=== PATIENT | female | born 1970 | race Caucasian/White ===

== ENCOUNTER 2017-12-31 09:28 | Emergency (ER) | payer BC ==
[~2017-12-31] VITALS: Ht 165.1 cm; Wt 68.0 kg
[2017-12-31] MEDS ORDERED: NORCO 5-325 TA1 EACH PO (09:51)
[2017-12-31] MEDS ORDERED: DULOXETINE HCL60 MG PO (09:51)
[2017-12-31] MEDS ORDERED: LYRICA100 MG PO (09:51)
[2017-12-31] MEDS ORDERED: PREDNISONE20 MG PO (10:59)
[2017-12-31] MEDS ORDERED: ROBAXIN-750750 MG PO (10:59)
== END 2017-12-31 11:21 | disposition home or self-care (01) ==
LOC: ED 09:28
DX: M54.41 Lumbago with sciatica, right side (principal); G89.29 Other chronic pain; F17.200 Nicotine dependence, unspecified, uncomplicated; Z79.899 Other long term (current) drug therapy
CPT/HCPCS: 96372; 99283; J1885; J7512

== ENCOUNTER 2020-10-02 14:50 | Emergency (ER) | payer BC ==
[~2020-10-02] VITALS: Ht 165.1 cm; Wt 79.8 kg
[~2020-10-02 14:50] MED LIST: DULOXETINE HCL60 MG PO; LYRICA100 MG PO; NORCO 5-325 TA1 EACH PO; PREDNISONE20 MG PO; ROBAXIN-750750 MG PO
--- OUTSIDE RECORDS SUMMARY | 2020-10-02 14:52 | XMS ---
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 Cipriano has no Care Guidelines for this patient. Myra VISIT COUNT (12 MO.) 1 [facility] 1 [facility] 1 [facility] TOTAL 3 NOTE: Visits indicate total known visits. ED/C VISIT TRACKING (12 MO.) 10/02/2020 14:50 [facility] [place] TYPE: Emergency COMPLAINT: - LUNG PAIN [facility] DIAGNOSES: - Shoulder Pain - Left arm pain - Calcific tendinitis of left shoulder [facility] DIAGNOSES: - Pyothorax without fistula - Post-op Problem - Other nonspecific abnormal finding of lung field INPATIENT VISIT TRACKING (12 MO.) No inpatient visits to display in this time frame [email or web address]
[2020-10-02] MEDS ORDERED: TRAMADOL HCL50 MG PO (15:14)
[2020-10-02] MEDS ORDERED: LATUDA80 MG PO (15:14)
[2020-10-02] MEDS ORDERED: PREDNISONE20 MG PO (17:13)
[2020-10-02] MEDS ORDERED: NICODERM CQ1 EAC1 TD (17:13)
[2020-10-02] MEDS ORDERED: VENTOLIN HFA18 GM INH (17:13)
[2020-10-02] MEDS ORDERED: DOXYCYCLINE HY100 MG PO (17:13)
== END 2020-10-02 17:33 | disposition home or self-care (01) ==
LOC: ED 14:50
DX: J40 Bronchitis, not specified as acute or chronic (principal); F17.200 Nicotine dependence, unspecified, uncomplicated; Z79.899 Other long term (current) drug therapy
CPT/HCPCS: 71046; 80053; 85025; 94640; 99283-25; 99406

== ENCOUNTER 2021-12-15 16:56 | Emergency (ER) | payer BC ==
[~2021-12-15] VITALS: Ht 165.1 cm; Wt 78.0 kg
[~2021-12-15 16:56] MED LIST changes: +DOXYCYCLINE HY100 MG PO; +LATUDA80 MG PO; +NICODERM CQ1 EAC1 TD; +TRAMADOL HCL50 MG PO; +VENTOLIN HFA18 GM INH
--- OUTSIDE RECORDS SUMMARY | 2021-12-15 16:58 | XMS ---
PreManage Notification: SERAFIN LEPE Security Scrap Charger Events No recent Security Events currently on file CRITERIA MET - PDMP CARE PROVIDERS CLAUDE LOPEZ Physician Continuity Reader 10/03/2020-Current PHONE: [phone] Cipriano has no Care Guidelines for this patient. EJose Carlos VISIT COUNT (12 MO.) 1 [facility]LINE [facility] TOTAL 1 NOTE: Visits indicate total known visits. ED/UCC VISIT TRACKING (12 MO.) 12/15/2021 16:56 [facility] [place] TYPE: Emergency COMPLAINT: - NAUSEA INPATIENT VISIT TRACKING (12 MO.) No inpatient visits to display in this time frame [email or web address]
[2021-12-15] MEDS ORDERED: GOLYTELY SOLU4000 ML PO (22:34)
[2021-12-15] MEDS ORDERED: PROMETHAZINE HC25 M1 PO (22:34)
== END 2021-12-15 22:47 | disposition home or self-care (01) ==
LOC: ED 16:56
DX: R51.9 Headache, unspecified (principal); K59.00 Constipation, unspecified; R10.9 Unspecified abdominal pain; R11.0 Nausea; F17.200 Nicotine dependence, unspecified, uncomplicated; Z79.899 Other long term (current) drug therapy; Z79.52 Long term (current) use of systemic steroids
CPT/HCPCS: 36415; 70450; 74177; 80053; 81001; 83690; 85025; J1170; J2405; Q9967

== ENCOUNTER 2021-12-16 15:45 | Emergency (ER) | payer BC ==
[~2021-12-16] VITALS: Ht 165.1 cm; Wt 78.0 kg
[~2021-12-16 15:45] MED LIST changes: +GOLYTELY SOLU4000 ML PO; +PROMETHAZINE HC25 M1 PO
--- OUTSIDE RECORDS SUMMARY | 2021-12-16 15:46 | XMS ---
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 Myra VISIT COUNT (12 MO.) 2 [facility] TOTAL 2 NOTE: Visits indicate total known visits. ED/UCC VISIT TRACKING (12 MO.) 12/16/2021 15:45 [facility] [place] TYPE: Emergency COMPLAINT: - ABDOMINAL PAIN 12/15/2021 16:56 [facility] [place] TYPE: Emergency COMPLAINT: - NAUSEA INPATIENT VISIT TRACKING (12 MO.) No inpatient visits to display in this time frame [email or web address]
== END 2021-12-16 18:32 | disposition left against medical advice (07) ==
LOC: ED 15:45
DX: R10.9 Unspecified abdominal pain (principal); F17.200 Nicotine dependence, unspecified, uncomplicated; Z79.52 Long term (current) use of systemic steroids; Z53.21 Procedure and treatment not carried out due to patient leaving prior to being seen by health care provider
CPT/HCPCS: J2212

== ENCOUNTER 2022-06-05 08:16 | Emergency (ER) | payer BC ==
[~2022-06-05] VITALS: Ht 165.1 cm; Wt 68.5 kg
[~2022-06-05 08:16] MED LIST changes: +BUPRENORPHINE HC8 MG SL; +ESTRACE0.5 MG PO; +METHOCARBAMOL750 MG NG; +TRAZODONE HCL100 MG PO
--- OUTSIDE RECORDS SUMMARY | 2022-06-05 08:18 | XMS ---
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 - Patient with suicidal and/or homicidal ideations eloped. - Patient eloped with IV in place. Details: PATIENT LEFT AMA CRITERIA MET - [facility] CARE PROVIDERS CLAUDE LOPEZ Physician Lumber Salvager 10/03/2020-Current PHONE: Unknown Cipriano has no Care Guidelines for this patient. Myra VISIT COUNT (12 MO.) 3 [facility] TOTAL 3 NOTE: Visits indicate total known visits. ED/UCC VISIT TRACKING (12 MO.) 06/05/2022 08:17 [facility] [place] TYPE: Emergency COMPLAINT: - CHEST PAIN, LIGHT HEADED 12/16/2021 15:45 [facility] [place] TYPE: Emergency COMPLAINT: - ABDOMINAL PAIN DIAGNOSES: - Unspecified abdominal pain - Nicotine dependence, unspecified, uncomplicated - Procedure and treatment not carried out due to patient leaving prior to being seen by health care provider - long term acute care registered nurse (current) use of systemic steroids 12/15/2021 16:56 [facility] [place] TYPE: Emergency COMPLAINT: - NAUSEA DIAGNOSES: - long term acute care registered nurse (current) use of systemic steroids - Nicotine dependence, unspecified, uncomplicated - Nausea - 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
[2022-06-05] MEDS ORDERED: MEDROXYPROGEST2.5 MG PO (08:44)
[2022-06-05] MEDS ORDERED: TOLTERODINE TART4 MG PO (08:45)
[2022-06-05] MEDS ORDERED: LIDODERM1 EACH TD (10:58)
[2022-06-05] MEDS ORDERED: NAPROSYN500 MG PO (10:58)
--- NOTE | 2022-06-07 06:50 | EKG ---
[facility] [address] [facility] [place], [place] [address] Signed Normal sinus rhythm Normal ECG No previous ECGs available Confirmed by MANAS PASTRANA MD ([id number]) on 06/07/2022 6:49:49 AM Electronically Signed By: MANAS PASTRANA MD 06/07/22 0650 PATIENT NAME: SERAFIN LEPE Electrocardiogram DATE OF : 68 PHYSICIAN: MANAS PASTRANA MD REPORT #: [id number] REPORT IS CONFIDENTIAL AND NOT TO BE RELEASED WITHOUT AUTHORIZATION
== END 2022-06-05 11:31 | disposition home or self-care (01) ==
LOC: ED 08:16
DX: R09.1 Pleurisy (principal); F17.200 Nicotine dependence, unspecified, uncomplicated; Z88.1 Allergy status to other antibiotic agents; Z79.899 Other long term (current) drug therapy
CPT/HCPCS: 36415; 71045; 80053; 83735; 84484; 85025; 85379; 93005; 93010; 96374; 96375; 99285-25; A9270; J1170; J1885

== ENCOUNTER 2023-02-27 18:18 | Emergency (ER) | payer BC ==
[~2023-02-27] VITALS: Ht 165.1 cm; Wt 63.5 kg
--- OUTSIDE RECORDS SUMMARY | ~2023-02-27 | XMS | Continuity of Care Document ---
Demographics + + + | Address | [address] | | | [place] [address] | + + + | Preferred Language | Unknown | + + + | Marital Status | Never | + + + | Orthodox Affiliation | Unknown | + + + | Race | White | + + + | Ethnic Group | Not or | + + + Author + + + | Author | [facility] | + + + | Organization | [facility] | + + + | Address | [address] | | | [place] [address] | + + + | Phone | | + + + Care Team Providers + + + + | Care Car Park Attendant Name | Role | Phone | + + + + Unavailable | Unavailable | + + + + Unavailable | Unavailable | + + + + Unavailable | Unavailable | + + + + Unavailable | Unavailable | + + + + Allergies and Intolerances + + + + + + | date | description | facility | reaction | severity | + + + + + + | (no date) | Doxycycline | [facility] | (no reaction) | (no severity) | | | | [facility] | | | + + + + + + | (no date) | Urticaria | [facility] | (no reaction) | (no severity) | | | | [facility] | | | + + + + + + | (no date) | Doxycycline | [facility] | (no reaction) | (no severity) | | | | [facility] | | | + + + + + + | (no date) | Doxycycline | [facility] | (no reaction) | (no severity) | | | | [place] | | | | [facility] | | | + + + + + + Encounters No information. Functional Status No information. Immunizations No information. Medications + + + + | date | description | facility | + + + + | 2022-06-06 00:00 | [facility] | [facility] | | | ACETATE | | + + + + | 2022-06-27 00:00 | MEDROXYPROGESTERONE | [facility] | | | ACETATE | | + + + + | 2022-08-26 00:00 | medroxyprogesterone | [facility] | | | acetate 2.5 MG Oral Tablet | | + + + + | 2022-06-27 00:00 | Buprenorphine HCl/Naloxone | [facility] | | | HCl | | + + + + | 2017-12-31 00:00 | METHOCARBAMOL | [facility] | + + + + | 2022-06-05 00:00 | Lidocaine | [facility] | + + + + | 2022-01-04 00:00 | LURASIDONE HCL | [facility] | + + + + | 2022-09-02 00:00 | ondansetron 4 MG | [facility] | | | Disintegrating Oral Tablet | | + + + + | 2022-09-12 00:00 | ondansetron 4 MG | [facility] | | | Disintegrating Oral Tablet | | + + + + | 2022-09-24 00:00 | ondansetron 4 MG | [facility] | | | Disintegrating Oral Tablet | | + + + + | 2022-09-24 00:00 | Ibuprofen 800 MG Oral | [facility] | | | Tablet | | + + + + | 2022-11-02 00:00 | Ibuprofen 800 MG Oral | [facility] | | | Tablet | | + + + + | 2022-12-30 00:00 | Ibuprofen 800 MG Oral | [facility] | | | Tablet | | + + + + | 2022-06-05 00:00 | NAPROXEN | [facility] | + + + + | 2022-08-26 00:00 | medroxyPROGESTERone | [facility] | | | Acetate 2.5 MG Oral Tablet | | + + + + | 2020-10-02 00:00 | DOXYCYCLINE HYCLATE | [facility] | + + + + | 2023-02-16 00:00 | GNP Pseudoephedrine HCl 12 | [facility] | | | Hr 120 MG Oral Tablet | | | | Extended Release 12 Hour | | + + + + | 2022-09-01 00:00 | estradiol 2 MG Oral Tablet | [facility] | | | | | + + + + | 2022-09-24 00:00 | ibuprofen 800 MG Oral | [facility] | | | Tablet | | + + + + | 2022-11-02 00:00 | ibuprofen 800 MG Oral | [facility] | | | Tablet | | + + + + | 2022-12-30 00:00 | ibuprofen 800 MG Oral | [facility] | | | Tablet | | + + + + | 2022-06-20 00:00 | NICOTINE | [facility] | + + + + | 2022-06-02 00:00 | ESTRADIOL | [facility] | + + + + | 2022-06-06 00:00 | ESTRADIOL | [facility] | + + + + | 2022-06-27 00:00 | ESTRADIOL | [facility] | + + + + | 2022-09-01 00:00 | Estradiol 2 MG Oral Tablet | [facility] | | | | | + + + + | 2017-12-31 00:00 | predniSONE | [facility] | + + + + | 2020-10-02 00:00 | predniSONE | [facility] | + + + + | 2022-06-02 00:00 | BUPRENORPHINE HCL | [facility] | + + + + | 2022-06-06 00:00 | BUPRENORPHINE HCL | [facility] | + + + + | 2020-10-02 00:00 | NICOTINE | [facility] | + + + + | 2022-09-24 00:00 | Verapamil HCl ER 120 MG | [facility] | | | Oral Tablet Extended | | | | Release | | + + + + | 2022-09-02 00:00 | Cyclobenzaprine HCl 10 MG | [facility] | | | Oral Tablet | | + + + + | 2023-02-16 00:00 | amoxicillin 875 MG / | [facility] | | | clavulanate 125 MG Oral | | | | Tablet | | + + + + | 2022-01-04 00:00 | DULOXETINE HCL | [facility] | + + + + | 2022-06-02 00:00 | DULOXETINE HCL | [facility] | + + + + | 2022-06-06 00:00 | DULOXETINE HCL | [facility] | + + + + | 2022-06-27 00:00 | DULOXETINE HCL | [facility] | + + + + | 2022-09-01 00:00 | duloxetine 60 MG Delayed | [facility] | | | Release Oral Capsule | | + + + + | 2022-01-04 00:00 | PREGABALIN | [facility] | + + + + | 2022-09-02 00:00 | Ondansetron 4 MG Oral | [facility] | | | Tablet Disintegrating | | + + + + | 2022-09-12 00:00 | Ondansetron 4 MG Oral | [facility] | | | Tablet Disintegrating | | + + + + | 2022-09-24 00:00 | Ondansetron 4 MG Oral | [facility] | | | Tablet Disintegrating | | + + + + | 2023-02-16 00:00 | Amoxicillin-Pot | [facility] | | | Clavulanate 875-125 MG Oral | | | | Tablet | | + + + + | 2022-09-02 00:00 | cyclobenzaprine | [facility] | | | hydrochloride 10 MG Oral | | | | Tablet | | + + + + | 2022-01-04 00:00 | TRAMADOL HCL | [facility] | + + + + | 2022-06-06 00:00 | TOLTERODINE TARTRATE | [facility] | + + + + | 2022-06-27 00:00 | TOLTERODINE TARTRATE | [facility] | + + + + | 2022-06-02 00:00 | TRAZODONE HCL | [facility] | + + + + | 2022-06-06 00:00 | TRAZODONE HCL | [facility] | + + + + | 2022-06-27 00:00 | TRAZODONE HCL | [facility] | + + + + | 2022-01-04 00:00 | HYDROCODONE | [facility] | | | BIT/ACETAMINOPHEN | | + + + + | 2020-10-02 00:00 | ALBUTEROL SULFATE | [facility] | + + + + | 2022-09-01 00:00 | DULoxetine HCl 60 MG Oral | [facility] | | | Capsule Delayed Release | | | | Particles | | + + + + | 2022-09-24 00:00 | verapamil hydrochloride | [facility] | | | 120 MG Extended Release | | | | Oral Tablet | | + + + + | 2021-12-15 00:00 | PEG 3350/NA | [facility] | | | SULF,BICARB,CL/KCL | | + + + + | 2021-12-15 00:00 | PROMETHAZINE HCL | [facility] | + + + + | 2022-09-01 00:00 | Trazadone HCL 150mg | [facility] | | | Ophthalmic Tablet | | + + + + Problems + + + + | date | description | facility | + + + + | 2021-10-25 11:00 | CERVICALGIA | [facility] | + + + + | 2021-10-25 11:00 | STRAIN OF MUSCLE, FASCIA | [facility] | | | AND TENDON AT NECK LEVEL, | | | | SUBS | | + + + + | 2021-10-25 11:00 | ARTHRODESIS STATUS | [facility] | + + + + | 2021-12-15 00:00 | Constipation | [facility] | + + + + | 2021-12-15 00:00 | Abdominal pain | [facility] | + + + + | 2021-12-15 00:00 | Headache | [facility] | + + + + | 2021-12-15 16:56 | Nicotine dependence, | [facility] | | | unspecified, uncomplicated | [facility] | + + + + | 2021-12-15 16:56 | Constipation, unspecified | [facility] | | | | [facility] | + + + + | 2021-12-15 16:56 | Unspecified abdominal pain | [facility] | | | | [facility] | + + + + | 2021-12-15 16:56 | Nausea | [facility] | | | | [facility] | + + + + | 2021-12-15 16:56 | Headache, unspecified | [facility] | | | [facility] | + + + + | 2021-12-15 16:56 | [facility] (current) use of | [facility] | | | systemic steroids | [facility] | + + + + | 2021-12-15 16:56 | Other senior living (current) | [facility] | | | drug therapy | [facility] | + + + + | 2022-06-05 00:00 | Pleurisy | [facility] | + + + + | 2022-06-20 00:00 | Influenza due to influenza | [facility] | | | virus, type A, human | | + + + + | 2022-06-20 00:00 | Acute viral bronchitis | [facility] | + + + + | 2022-11-06 11:48 | CERVICALGIA | [facility] | + + + + Procedures + + + + | date | description | facility | + + + + | 2022-06-02 00:00 | EXCISION OF CECUM, ENDO, | [facility] | | | DIAGN | | + + + + | 2022-06-02 00:00 | EXCISION OF RECTUM, ENDO, | [facility] | | | DIAGN | | + + + + | 2022-06-02 00:00 | Colonoscopy with biopsy of [facility] | | | colon | | + + + + | 2022-06-02 00:00 | Colonoscopy with biopsy of [facility] | | | colon | | + + + + | 2022-06-02 00:00 | COLONOSCOPY AND BIOPSY | [facility] | + + + + Results/Labs +--------+--------+ +---------+--------+---------+ | test | date | facility | value | unit | notes | +--------+--------+ +---------+--------+---------+ + + | Result panel 1 | + + + + + + + + + | No Results | (no date) | [facility] | No Results | (missing) | (missing) | | [facility] | | [facility] | | | | + + + + + + + + + | Result panel 2 | + + + + + + + + + | No Results | (no date) | [facility] | No Results | (missing) | (missing) | | | | [facility] | | | | | | [facility] | | | | + + + + + + + + + | Result panel 3 | + + + + + + + + + | No Results | (no date) | [facility] | No Results | (missing) | (missing) | | | | [facility] | | | | | | [facility] | | | | + + + + + + + + + | Result panel 4 | + + + + + + + + + | No Results | (no date) | [facility] | No Results | (missing) | (missing) | | | | [facility] | | | | | | | [facility] | | | | + + + + + + + + + | Result panel 5 | + + + + + + + + + | No Results | (no date) | [facility] | No Results | (missing) | (missing) | | | | [facility] | | | | | | | [facility] | | | | + + + + + + + + + | Result panel 6 | + + + + + + + + + | No Results | (no date) | [facility] | No Results | (missing) | (missing) | | | | [facility] | | | | | | | [facility] | | | | + + + + + + + + + | Result panel 7 | + + + + + +--------+ + + | | 2021-12-15 | [facility] | 47.3 | (missing) | (missing) | | (unavailable | 19:43 | [facility] | | | | + + + +--------+ + + + + | Result panel 8 | + + + + + +--------+ + + | | 2021-12-15 | [facility] | 91.9 | (missing) | (missing) | | (unavailable | 19:43 | [facility] | | | | + + + +--------+ + + + + | Result panel 9 | + + + + + +--------+ + + | | 2021-12-15 | [facility] | 31.3 | (missing) | (missing) | | (unavailable | 19:43 | [facility] | | | | + + + +--------+ + + + + | Result panel 10 | + + + + + +--------+ + + | | 2021-12-15 | [facility] | 34.0 | (missing) | (missing) | | (unavailable | 19:43 | [facility] | | | | + + + +--------+ + + + + | Result panel 11 | + + + + + +--------+ + + | | 2021-12-15 | [facility] | 13.6 | (missing) | (missing) | | (unavailable | 19:43 | [facility] | | | | + + + +--------+ + + + + | Result panel 12 | + + + + + +-------+ + + | | 2021-12-15 | [facility] | 314 | (missing) | (missing) | | (unavailable | 19:43 | [facility] | | | | + + + +-------+ + + + + | Result panel 13 | + + + + + +--------+ + + | | 2021-12-15 | [facility] | 47.5 | (missing) | (missing) | | (unavailable | 19:43 | [facility] | | | | + + + +--------+ + + + + | Result panel 14 | + + + + + +--------+ + + | | 2021-12-15 | [facility] | 41.0 | (missing) | (missing) | | (unavailable | 19:43 | [facility] | | | | + + + +--------+ + + + + | Result panel 15 | + + + + + +-------+ + + | | 2021-12-15 | [facility] | 7.4 | (missing) | (missing) | | (unavailable | 19:43 | [facility] | | | | + + + +-------+ + + + + | Result panel 16 | + + + + + +-------+ + + | | 2021-12-15 | [facility] | 3.7 | (missing) | (missing) | | (unavailable | 19:43 | [facility] | | | | + + + +-------+ + + + + | Result panel 17 | + + + + + +-------+ + + | | 2021-12-15 | [facility] | 0.4 | (missing) | (missing) | | (unavailable | 19:43 | [facility] | | | | + + + +-------+ + + + + | Result panel 18 | + + + + + +------+---------+ + | | 2021-12-15 | [facility] | 96 | mg/dL | (missing) | | (unavailable | 19:43 | [facility] | | | | + + + +------+---------+ + + + | Result panel 19 | + + + + + +-----+---------+ + | | 2021-12-15 | [facility] | 9 | mg/dL | (missing) | | (unavailable | 19:43 | [facility] | | | | + + + +-----+---------+ + + + | Result panel 20 | + + + + + +--------+---------+ + | | 2021-12-15 | [facility] | 0.95 | mg/dL | (missing) | | (unavailable | 19:43 | [facility] | | | | + + + +--------+---------+ + + + | Result panel 21 | + + + + + +------+ + + | | 2021-12-15 | [facility] | 72 | (missing) | (missing) | | (unavailable | 19:43 | [facility] | | | | + + + +------+ + + + + | Result panel 22 | + + + + + +--------+ + + | | 2021-12-15 | [facility] | 9.47 | (missing) | (missing) | | (unavailable | 19:43 | [facility] | | | | + + + +--------+ + + + + | Result panel 23 | + + + + + +-------+ + + | | 2021-12-15 | [facility] | 141 | (missing) | (missing) | | (unavailable | 19:43 | [facility] | | | | + + + +-------+ + + + + | Result panel 24 | + + + + + +-------+ + + | | 2021-12-15 | [facility] | 4.1 | (missing) | (missing) | | (unavailable | 19:43 | [facility] | | | | + + + +-------+ + + + + | Result panel 25 | + + + + + +-------+ + + | | 2021-12-15 | [facility] | 103 | (missing) | (missing) | | (unavailable | 19:43 | [facility] | | | | + + + +-------+ + + + + | Result panel 26 | + + + + + +------+ + + | | 2021-12-15 | [facility] | 30 | (missing) | (missing) | | (unavailable | 19:43 | [facility] | | | | + + + +------+ + + + + | Result panel 27 | + + + + + +--------+ + + | | 2021-12-15 | [facility] | 12.1 | (missing) | (missing) | | (unavailable | 19:43 | [facility] | | | | + + + +--------+ + + + + | Result panel 28 | + + + + + +-------+---------+ + | | 2021-12-15 | [facility] | 9.4 | mg/dL | (missing) | | (unavailable | 19:43 | [facility] | | | | + + + +-------+---------+ + + + | Result panel 29 | + + + + + +-------+ + + | | 2021-12-15 | [facility] | 7.2 | (missing) | (missing) | | (unavailable | 19:43 | [facility] | | | | + + + +-------+ + + + + | Result panel 30 | + + + + + +-------+ + + | | 2021-12-15 | [facility] | 3.9 | (missing) | (missing) | | (unavailable | 19:43 | [facility] | | | | + + + +-------+ + + + + | Result panel 31 | + + + + + +-------+ + + | | 2021-12-15 | [facility] | 3.3 | (missing) | (missing) | | (unavailable | 19:43 | [facility] | | | | + + + +-------+ + + + + | Result panel 32 | + + + + + +--------+ + + | | 2021-12-15 | [facility] | 1.18 | (missing) | (missing) | | (unavailable | 19:43 | [facility] | | | | + + + +--------+ + + + + | Result panel 33 | + + + + + +-------+ + + | | 2021-12-15 | [facility] | 0.5 | (missing) | (missing) | | (unavailable | 19:43 | [facility] | | | | + + + +-------+ + + + + | Result panel 34 | + + + + + +------+ + + | | 2021-12-15 | [facility] | 25 | (missing) | (missing) | | (unavailable | 19:43 | [facility] | | | | + + + +------+ + + + + | Result panel 35 | + + + + + +------+ + + | | 2021-12-15 | [facility] | 39 | (missing) | (missing) | | (unavailable | 19:43 | [facility] | | | | + + + +------+ + + + + | Result panel 36 | + + + + + +------+ + + | | 2021-12-15 | [facility] | 79 | (missing) | (missing) | | (unavailable | 19:43 | [facility] | | | | + + + +------+ + + + + | Result panel 37 | + + + + + +------+ + + | | 2021-12-15 | [facility] | 42 | (missing) | (missing) | | (unavailable | 19:43 | [facility] | | | | + + + +------+ + + + + | Result panel 38 | + + + + + +-------+ + + | | 2021-12-15 | [facility] | 7.0 | (missing) | (missing) | | (unavailable | 19:43 | [facility] | | | | + + + +-------+ + + + + | Result panel 39 | + + + + + +--------+ + + | | 2021-12-15 | [facility] | 5.15 | (missing) | (missing) | | (unavailable | 19:43 | [facility] | | | | + + + +--------+ + + + + | Result panel 40 | + + + + + +--------+ + + | | 2021-12-15 | [facility] | 16.1 | (missing) | (missing) | | (unavailable | 19:43 | [facility] | | | | + + + +--------+ + + + + | Result panel 41 | + + + + + + + + + | | 2021-12-15 | [facility] | YELLOW | (missing) | (missing) | | (unavailable | 21:44 | [facility] | | | | + + + + + + + + + | Result panel 42 | + + + + + +---------+ + + | | 2021-12-15 | [facility] | CLEAR | (missing) | (missing) | | (unavailable | 21:44 | [facility] | | | | + + + +---------+ + + + + | Result panel 43 | + + + + + + + + + | | 2021-12-15 | [facility] | NEGATIVE | (missing) | (missing) | | (unavailable | 21:44 | [facility] | | | | + + + + + + + + + | Result panel 44 | + + + + + + + + + | | 2021-12-15 | [facility] | NEGATIVE | (missing) | (missing) | | (unavailable | 21:44 | [facility] | | | | + + + + + + + + + | Result panel 45 | + + + + + + + + + | | 2021-12-15 | [facility] | NEGATIVE | (missing) | (missing) | | (unavailable | 21:44 | [facility] | | | | + + + + + + + + + | Result panel 46 | + + + + + + + + + | | 2021-12-15 | [facility] | <=1.005 | (missing) | (missing) | | (unavailable | 21:44 | [facility] | | | | + + + + + + + + + | Result panel 47 | + + + + + + + + + | | 2021-12-15 | [facility] | TRACE-I | (missing) | (missing) | | (unavailable | 21:44 | [facility] | | | | + + + + + + + + + | Result panel 48 | + + + + + +-------+ + + | | 2021-12-15 | [facility] | 5.5 | (missing) | (missing) | | (unavailable | 21:44 | [facility] | | | | + + + +-------+ + + + + | Result panel 49 | + + + + + + + + + | | 2021-12-15 | [facility] | NEGATIVE | (missing) | (missing) | | (unavailable | 21:44 | [facility] | | | | + + + + + + + + + | Result panel 50 | + + + + + + + + + | | 2021-12-15 | [facility] | NORMAL | (missing) | (missing) | | (unavailable | 21:44 | [facility] | | | | + + + + + + + + + | Result panel 51 | + + + + + + + + + | | 2021-12-15 | [facility] | NEGATIVE | (missing) | (missing) | | (unavailable | 21:44 | [facility] | | | | + + + + + + + + + | Result panel 52 | + + + + + + + + + | | 2021-12-15 | [facility] | NEGATIVE | (missing) | (missing) | | (unavailable | 21:44 | [facility] | | | | + + + + + + + + + | Result panel 53 | + + + + + +-------+ + + | | 2021-12-15 | [facility] | 2-3 | (missing) | (missing) | | (unavailable | 21:44 | [facility] | | | | + + + +-------+ + + + + | Result panel 54 | + + + + + +-------+ + + | | 2021-12-15 | [facility] | 0-1 | (missing) | (missing) | | (unavailable | 21:44 | [facility] | | | | + + + +-------+ + + + + | Result panel 55 | + + + + + + + + + | | 2021-12-15 | [facility] | SQUAMOUS 1+ | (missing) | (missing) | | (unavailable | 21:44 | [facility] | | | | + + + + + + + + + | Result panel 56 | + + + + + +------+ + + | | 2021-12-15 | [facility] | No | (missing) | (missing) | | (unavailable | 21:44 | [facility] | | | | + + + +------+ + + + + | Result panel 57 | + + + + + + + + + | | 2021-12-15 | [facility] | CLEAN CATCH | (missing) | (missing) | | (unavailable | 21:44 | [facility] | | | | + + + + + + + + + | Result panel 58 | + + + + + +-------+---------+ + | | 2022-06-05 | [facility] | 126 | mg/dL | (missing) | | (unavailable | 08:28:08 | [facility] | | | | + + + +-------+---------+ + + + | Result panel 59 | + + + + + +-----+---------+ + | | 2022-06-05 | [facility] | 8 | mg/dL | (missing) | | (unavailable | 08:28:08 | [facility] | | | | + + + +-----+---------+ + + + | Result panel 60 | + + + + + +--------+---------+ + | | 2022-06-05 | [facility] | 0.80 | mg/dL | (missing) | | (unavailable | 08:28:08 | [facility] | | | | + + + +--------+---------+ + + + | Result panel 61 | + + + + + +------+ + + | | 2022-06-05 | [facility] | 89 | (missing) | (missing) | | (unavailable | 08:28:08 | [facility] | | | | + + + +------+ + + + + | Result panel 62 | + + + + + +---------+ + + | | 2022-06-05 | [facility] | 10.00 | (missing) | (missing) | | (unavailable | 08:28:08 | [facility] | | | | + + + +---------+ + + + + | Result panel 63 | + + + + + +-------+ + + | | 2022-06-05 | [facility] | 138 | (missing) | (missing) | | (unavailable | 08:28:08 | [facility] | | | | + + + +-------+ + + + + | Result panel 64 | + + + + + +-------+ + + | | 2022-06-05 | [facility] | 4.8 | (missing) | (missing) | | (unavailable | 08:28:08 | [facility] | | | | + + + +-------+ + + + + | Result panel 65 | + + + + + +-------+ + + | | 2022-06-05 | [facility] | 102 | (missing) | (missing) | | (unavailable | 08:28:08 | [facility] | | | | + + + +-------+ + + + + | Result panel 66 | + + + + + +------+ + + | | 2022-06-05 | [facility] | 29 | (missing) | (missing) | | (unavailable | 08:28:08 | [facility] | | | | + + + +------+ + + + + | Result panel 67 | + + + + + +--------+ + + | | 2022-06-05 | [facility] | 11.8 | (missing) | (missing) | | (unavailable | 08:28:08 | [facility] | | | | + + + +--------+ + + + + | Result panel 68 | + + + + + +-------+---------+ + | | 2022-06-05 | [facility] | 9.9 | mg/dL | (missing) | | (unavailable | 08:28:08 | [facility] | | | | + + + +-------+---------+ + + + | Result panel 69 | + + + + + +-------+---------+ + | | 2022-06-05 | [facility] | 2.0 | mg/dL | (missing) | | (unavailable | 08:28:08 | [facility] | | | | + + + +-------+---------+ + + + | Result panel 70 | + + + + + +-------+ + + | | 2022-06-05 | [facility] | 8.1 | (missing) | (missing) | | (unavailable | 08:28:08 | [facility] | | | | + + + +-------+ + + + + | Result panel 71 | + + + + + +-------+ + + | | 2022-06-05 | [facility] | 4.3 | (missing) | (missing) | | (unavailable | 08:28:08 | [facility] | | | | + + + +-------+ + + + + | Result panel 72 | + + + + + +-------+ + + | | 2022-06-05 | [facility] | 3.8 | (missing) | (missing) | | (unavailable | 08:28:08 | [facility] | | | | + + + +-------+ + + + + | Result panel 73 | + + + + + +--------+ + + | | 2022-06-05 | [facility] | 1.13 | (missing) | (missing) | | (unavailable | 08:28:08 | [facility] | | | | + + + +--------+ + + + + | Result panel 74 | + + + + + +-------+ + + | | 2022-06-05 | [facility] | 0.5 | (missing) | (missing) | | (unavailable | 08:28:08 | [facility] | | | | + + + +-------+ + + + + | Result panel 75 | + + + + + +------+ + + | | 2022-06-05 | [facility] | 24 | (missing) | (missing) | | (unavailable | 08:28:08 | [facility] | | | | + + + +------+ + + + + | Result panel 76 | + + + + + +------+ + + | | 2022-06-05 | [facility] | 20 | (missing) | (missing) | | (unavailable | 08:28:08 | [facility] | | | | + + + +------+ + + + + | Result panel 77 | + + + + + +------+ + + | | 2022-06-05 | [facility] | 78 | (missing) | (missing) | | (unavailable | 08:28:08 | [facility] | | | | + + + +------+ + + + + | Result panel 78 | + + + + + +-------+ + + | | 2022-06-05 | [facility] | 5.7 | (missing) | (missing) | | (unavailable | 08:28:08 | [facility] | | | | + + + +-------+ + + + + | Result panel 79 | + + + + + +-------+---------+ + | | 2022-06-05 | [facility] | 126 | mg/dL | (missing) | | (unavailable | 08:28:08 | [facility] | | | | + + + +-------+---------+ + + + | Result panel 80 | + + + + + +-----+---------+ + | | 2022-06-05 | [facility] | 8 | mg/dL | (missing) | | (unavailable | 08:28:08 | [facility] | | | | + + + +-----+---------+ + + + | Result panel 81 | + + + + + +--------+---------+ + | | 2022-06-05 | [facility] | 0.80 | mg/dL | (missing) | | (unavailable | 08:28:08 | [facility] | | | | + + + +--------+---------+ + + + | Result panel 82 | + + + + + +------+ + + | | 2022-06-05 | [facility] | 89 | (missing) | (missing) | | (unavailable | 08:28:08 | [facility] | | | | + + + +------+ + + + + | Result panel 83 | + + + + + +---------+ + + | | 2022-06-05 | [facility] | 10.00 | (missing) | (missing) | | (unavailable | 08:28:08 | [facility] | | | | + + + +---------+ + + + + | Result panel 84 | + + + + + +-------+ + + | | 2022-06-05 | [facility] | 138 | (missing) | (missing) | | (unavailable | 08:28:08 | [facility] | | | | + + + +-------+ + + + + | Result panel 85 | + + + + + +-------+ + + | | 2022-06-05 | [facility] | 4.8 | (missing) | (missing) | | (unavailable | 08:28:08 | [facility] | | | | + + + +-------+ + + + + | Result panel 86 | + + + + + +-------+ + + | | 2022-06-05 | [facility] | 102 | (missing) | (missing) | | (unavailable | 08:28:08 | [facility] | | | | + + + +-------+ + + + + | Result panel 87 | + + + + + +------+ + + | | 2022-06-05 | [facility] | 29 | (missing) | (missing) | | (unavailable | 08:28:08 | [facility] | | | | + + + +------+ + + + + | Result panel 88 | + + + + + +--------+ + + | | 2022-06-05 | [facility] | 11.8 | (missing) | (missing) | | (unavailable | 08:28:08 | [facility] | | | | + + + +--------+ + + + + | Result panel 89 | + + + + + +-------+---------+ + | | 2022-06-05 | [facility] | 9.9 | mg/dL | (missing) | | (unavailable | 08:28:08 | [facility] | | | | + + + +-------+---------+ + + + | Result panel 90 | + + + + + +-------+---------+ + | | 2022-06-05 | [facility] | 2.0 | mg/dL | (missing) | | (unavailable | 08:28:08 | [facility] | | | | + + + +-------+---------+ + + + | Result panel 91 | + + + + + +-------+ + + | | 2022-06-05 | [facility] | 8.1 | (missing) | (missing) | | (unavailable | 08:28:08 | [facility] | | | | + + + +-------+ + + + + | Result panel 92 | + + + + + +-------+ + + | | 2022-06-05 | [facility] | 4.3 | (missing) | (missing) | | (unavailable | 08:28:08 | [facility] | | | | + + + +-------+ + + + + | Result panel 93 | + + + + + +-------+ + + | | 2022-06-05 | [facility] | 3.8 | (missing) | (missing) | | (unavailable | 08:28:08 | [facility] | | | | + + + +-------+ + + + + | Result panel 94 | + + + + + +--------+ + + | | 2022-06-05 | [facility] | 1.13 | (missing) | (missing) | | (unavailable | 08:28:08 | [facility] | | | | + + + +--------+ + + + + | Result panel 95 | + + + + + +-------+ + + | | 2022-06-05 | [facility] | 0.5 | (missing) | (missing) | | (unavailable | 08:28:08 | [facility] | | | | + + + +-------+ + + + + | Result panel 96 | + + + + + +------+ + + | | 2022-06-05 | [facility] | 24 | (missing) | (missing) | | (unavailable | 08:28:08 | [facility] | | | | + + + +------+ + + + + | Result panel 97 | + + + + + +------+ + + | | 2022-06-05 | [facility] | 20 | (missing) | (missing) | | (unavailable | 08:28:08 | [facility] | | | | + + + +------+ + + + + | Result panel 98 | + + + + + +------+ + + | | 2022-06-05 | [facility] | 78 | (missing) | (missing) | | (unavailable | 08:28:08 | [facility] | | | | + + + +------+ + + + + | Result panel 99 | + + + + + +-------+ + + | | 2022-06-05 | [facility] | 5.7 | (missing) | (missing) | | (unavailable | 08:28:08 | [facility] | | | | + + + +-------+ + + + + | Result panel 100 | + + + + + +--------+ + + | | 2022-06-05 | [facility] | 14.7 | (missing) | (missing) | | (unavailable | 08:54:08 | [facility] | | | | + + + +--------+ + + + + | Result panel 101 | + + + + + +--------+ + + | | 2022-06-05 | [facility] | 43.8 | (missing) | (missing) | | (unavailable | 08:54:08 | [facility] | | | | + + + +--------+ + + + + | Result panel 102 | + + + + + +--------+ + + | | 2022-06-05 | [facility] | 90.2 | (missing) | (missing) | | (unavailable | 08:54:08 | [facility] | | | | + + + +--------+ + + + + | Result panel 103 | + + + + + +--------+ + + | | 2022-06-05 | [facility] | 30.2 | (missing) | (missing) | | (unavailable | 08:54:08 | [facility] | | | | + + + +--------+ + + + + | Result panel 104 | + + + + + +--------+ + + | | 2022-06-05 | [facility] | 33.5 | (missing) | (missing) | | (unavailable | 08:54:08 | [facility] | | | | + + + +--------+ + + + + | Result panel 105 | + + + + + +--------+ + + | | 2022-06-05 | [facility] | 13.4 | (missing) | (missing) | | (unavailable | 08:54:08 | [facility] | | | | + + + +--------+ + + + + | Result panel 106 | + + + + + +-------+ + + | | 2022-06-05 | [facility] | 341 | (missing) | (missing) | | (unavailable | 08:54:08 | [facility] | | | | + + + +-------+ + + + + | Result panel 107 | + + + + + +--------+ + + | | 2022-06-05 | [facility] | 64.5 | (missing) | (missing) | | (unavailable | 08:54:08 | [facility] | | | | + + + +--------+ + + + + | Result panel 108 | + + + + + +--------+ + + | | 2022-06-05 | [facility] | 27.3 | (missing) | (missing) | | (unavailable | 08:54:08 | [facility] | | | | + + + +--------+ + + + + | Result panel 109 | + + + + + +-------+ + + | | 2022-06-05 | [facility] | 5.4 | (missing) | (missing) | | (unavailable | 08:54:08 | [facility] | | | | + + + +-------+ + + + + | Result panel 110 | + + + + + +-------+ + + | | 2022-06-05 | [facility] | 2.1 | (missing) | (missing) | | (unavailable | 08:54:08 | [facility] | | | | + + + +-------+ + + + + | Result panel 111 | + + + + + +-------+ + + | | 2022-06-05 | [facility] | 0.7 | (missing) | (missing) | | (unavailable | 08:54:08 | [facility] | | | | + + + +-------+ + + + + | Result panel 112 | + + + + + + + + + | | 2022-06-05 | [facility] | < 0.27 | (missing) | (missing) | | (unavailable | 08:54:08 | [facility] | | | | + + + + + + + + + | Result panel 113 | + + + + + +-------+ + + | | 2022-06-05 | [facility] | 6.7 | (missing) | (missing) | | (unavailable | 08:54:08 | [facility] | | | | + + + +-------+ + + + + | Result panel 114 | + + + + + +--------+ + + | | 2022-06-05 | [facility] | 4.85 | (missing) | (missing) | | (unavailable | 08:54:08 | [facility] | | | | + + + +--------+ + + + + | Result panel 115 | + + + + + +--------+ + + | | 2022-06-05 | [facility] | 14.7 | (missing) | (missing) | | (unavailable | 08:54:08 | [facility] | | | | + + + +--------+ + + + + | Result panel 116 | + + + + + +--------+ + + | | 2022-06-05 | [facility] | 43.8 | (missing) | (missing) | | (unavailable | 08:54:08 | [facility] | | | | + + + +--------+ + + + + | Result panel 117 | + + + + + +--------+ + + | | 2022-06-05 | [facility] | 90.2 | (missing) | (missing) | | (unavailable | 08:54:08 | [facility] | | | | + + + +--------+ + + + + | Result panel 118 | + + + + + +--------+ + + | | 2022-06-05 | [facility] | 30.2 | (missing) | (missing) | | (unavailable | 08:54:08 | [facility] | | | | + + + +--------+ + + + + | Result panel 119 | + + + + + +--------+ + + | | 2022-06-05 | [facility] | 33.5 | (missing) | (missing) | | (unavailable | 08:54:08 | [facility] | | | | + + + +--------+ + + + + | Result panel 120 | + + + + + +--------+ + + | | 2022-06-05 | [facility] | 13.4 | (missing) | (missing) | | (unavailable | 08:54:08 | [facility] | | | | + + + +--------+ + + + + | Result panel 121 | + + + + + +-------+ + + | | 2022-06-05 | [facility] | 341 | (missing) | (missing) | | (unavailable | 08:54:08 | [facility] | | | | + + + +-------+ + + + + | Result panel 122 | + + + + + +--------+ + + | | 2022-06-05 | [facility] | 64.5 | (missing) | (missing) | | (unavailable | 08:54:08 | [facility] | | | | + + + +--------+ + + + + | Result panel 123 | + + + + + +--------+ + + | | 2022-06-05 | [facility] | 27.3 | (missing) | (missing) | | (unavailable | 08:54:08 | [facility] | | | | + + + +--------+ + + + + | Result panel 124 | + + + + + +-------+ + + | | 2022-06-05 | [facility] | 5.4 | (missing) | (missing) | | (unavailable | 08:54:08 | [facility] | | | | + + + +-------+ + + + + | Result panel 125 | + + + + + +-------+ + + | | 2022-06-05 | [facility] | 2.1 | (missing) | (missing) | | (unavailable | 08:54:08 | [facility] | | | | + + + +-------+ + + + + | Result panel 126 | + + + + + +-------+ + + | | 2022-06-05 | [facility] | 0.7 | (missing) | (missing) | | (unavailable | 08:54:08 | [facility] | | | | + + + +-------+ + + + + | Result panel 127 | + + + + + + + + + | | 2022-06-05 | [facility] | < 0.27 | (missing) | (missing) | | (unavailable | 08:54:08 | [facility] | | | | + + + + + + + + + | Result panel 128 | + + + + + +-------+ + + | | 2022-06-05 | [facility] | 6.7 | (missing) | (missing) | | (unavailable | 08:54:08 | [facility] | | | | + + + +-------+ + + + + | Result panel 129 | + + + + + +--------+ + + | | 2022-06-05 | [facility] | 4.85 | (missing) | (missing) | | (unavailable | 08:54:08 | [facility] | | | | + + + +--------+ + + + + | Result panel 130 | + + + + + + + + + | | 2022-06-20 | [facility] | NEGATIVE | (missing) | (missing) | | (unavailable | 08:00:08 | [facility] | | | | + + + + + + + + + | Result panel 131 | + + + + + + + + + | | 2022-06-20 | [facility] | POSITIVE | (missing) | (missing) | | (unavailable | 08:00:08 | [facility] | | | | + + + + + + + + + | Result panel 132 | + + + + + + + + + | | 2022-06-20 | [facility] | NEGATIVE | (missing) | (missing) | | (unavailable | 08:00:08 | [facility] | | | | + + + + + + + + + | Result panel 133 | + + + + + + + + + | | 2022-06-20 | [facility] | NEGATIVE | (missing) | (missing) | | (unavailable | 08:00:08 | [facility] | | | | + + + + + + + Social History + + + + | date | description | facility | + + + + | 2022-09-03 00:00 | Unknown if ever smoked | [facility] | | | | | + + + + | 2022-09-03 00:00 | Ex-smoker (finding) | [facility] | | | | | + + + + | 2022-09-09 00:00 | Unknown if ever smoked | [facility] | | | | | + + + + | 2022-09-09 00:00 | [facility] ([facility] | | | | | + + + + | 2022-09-15 00:00 | Unknown if ever smoked | [facility] | | | | | + + + + | 2022-09-15 00:00 | Ex-smoker (finding) | [facility] | | | | | + + + + | 2022-09-16 00:00 | Unknown if ever smoked | [facility] | | | | | + + + + | 2022-09-16 00:00 | Ex-smoker (finding) | [facility] | | | | | + + + + | 2022-09-25 00:00 | Unknown if ever smoked | [facility] | | | | | + + + + | 2022-09-25 00:00 | Ex-smoker (finding) | [facility] | | | | | + + + + | 2023-02-16 00:00 | Unknown if ever smoked | [facility] | | | | | + + + + | 2023-02-16 00:00 | Ex-smoker (finding) | [facility] | | | | | + + + + Vital Signs + + + + + | date | measurement | value | units | + + + + + | 2021-12-15 00:00 | BMI | 28.6 | kg/m2 | + + + + + | 2021-12-15 00:00 | BP_diastolic | 88 | mmHg | + + + + + | 2021-12-15 00:00 | BP_systolic | 133 | mmHg | + + + + + | 2021-12-15 00:00 | heart_rate | 81 | /min | + + + + + | 2021-12-15 00:00 | height_metric | 165.1 | cm | + + + + + | 2021-12-15 00:00 | height_standard | 65 | in | + + + + + | 2021-12-15 00:00 | o2_saturation | 93 | % | + + + + + | 2021-12-15 00:00 | respiration_rate | 18 | /min | + + + + + | 2021-12-15 00:00 | temperature_metric | 36.67 | C | | | | | | + + + + + | 2021-12-15 00:00 | | 98 | F | | | temperature_standar | | | | | d | | | + + + + + | 2021-12-15 00:00 | weight_metric | 78 | kg | + + + + + | 2021-12-15 00:00 | weight_standard | 171.96 | lb | + + + + + | 2021-12-16 00:00 | BMI | 28.6 | kg/m2 | + + + + + | 2021-12-16 00:00 | BP_diastolic | 97 | mmHg | + + + + + | 2021-12-16 00:00 | BP_systolic | 148 | mmHg | + + + + + | 2021-12-16 00:00 | heart_rate | 88 | /min | + + + + + | 2021-12-16 00:00 | height_metric | 165.1 | cm | + + + + + | 2021-12-16 00:00 | height_standard | 65 | in | + + + + + | 2021-12-16 00:00 | o2_saturation | 96 | % | + + + + + | 2021-12-16 00:00 | respiration_rate | 16 | /min | + + + + + | 2021-12-16 00:00 | temperature_metric | 36.39 | C | | | | | | + + + + + | 2021-12-16 00:00 | | 97.5 | F | | | temperature_standar | | | | | d | | | + + + + + | 2021-12-16 00:00 | weight_metric | 77.99 | kg | + + + + + | 2021-12-16 00:00 | weight_standard | 171.94 | lb | + + + + + | 2022-05-30 00:00 | BMI | 26.0 | kg/m2 | + + + + + | 2022-05-30 00:00 | height_metric | 165.1 | cm | + + + + + | 2022-05-30 00:00 | height_standard | 65 | in | + + + + + | 2022-05-30 00:00 | weight_metric | 70.9 | kg | + + + + + | 2022-05-30 00:00 | weight_standard | 156.31 | lb | + + + + + | 2022-06-02 00:00 | BP_diastolic | 81 | mmHg | + + + + + | 2022-06-02 00:00 | BP_systolic | 129 | mmHg | + + + + + | 2022-06-02 00:00 | heart_rate | 88 | /min | + + + + + | 2022-06-02 00:00 | o2_saturation | 98 | % | + + + + + | 2022-06-02 00:00 | respiration_rate | 16 | /min | + + + + + | 2022-06-02 00:00 | temperature_metric | 36.5 | C | | | | | | + + + + + | 2022-06-02 00:00 | | 97.7 | F | | | temperature_standar | | | | | d | | | + + + + + | 2022-06-05 00:00 | BMI | 25.1 | kg/m2 | + + + + + | 2022-06-05 00:00 | BP_diastolic | 88 | mmHg | + + + + + | 2022-06-05 00:00 | BP_systolic | 124 | mmHg | + + + + + | 2022-06-05 00:00 | heart_rate | 79 | /min | + + + + + | 2022-06-05 00:00 | height_metric | 165.1 | cm | + + + + + | 2022-06-05 00:00 | height_standard | 65 | in | + + + + + | 2022-06-05 00:00 | o2_saturation | 97 | % | + + + + + | 2022-06-05 00:00 | respiration_rate | 15 | /min | + + + + + | 2022-06-05 00:00 | temperature_metric | 36.67 | C | | | | | | + + + + + | 2022-06-05 00:00 | | 98 | F | | | temperature_standar | | | | | d | | | + + + + + | 2022-06-05 00:00 | weight_metric | 68.46 | kg | + + + + + | 2022-06-05 00:00 | weight_metric | 68.47 | kg | + + + + + | 2022-06-05 00:00 | weight_standard | 150.93 | lb | + + + + + | 2022-06-05 00:00 | weight_standard | 150.94 | lb | + + + + + | 2022-06-20 00:00 | BP_diastolic | 93 | mmHg | + + + + + | 2022-06-20 00:00 | BP_systolic | 124 | mmHg | + + + + + | 2022-06-20 00:00 | heart_rate | 81 | /min | + + + + + | 2022-06-20 00:00 | height_metric | 165.1 | cm | + + + + + | 2022-06-20 00:00 | height_standard | 65 | in | + + + + + | 2022-06-20 00:00 | o2_saturation | 99 | % | + + + + + | 2022-06-20 00:00 | respiration_rate | 16 | /min | + + + + + | 2022-06-20 00:00 | temperature_metric | 36.67 | C | | | | | | + + + + + | 2022-06-20 00:00 | | 98 | F | | | temperature_standar | | | | | d | | | + + + + + | 2022-09-01 00:00 | BMI | 22.5 | 1 | + + + + + | 2022-09-01 00:00 | BP_diastolic | 78 | mmHg | + + + + + | 2022-09-01 00:00 | BP_systolic | 110 | mmHg | + + + + + | 2022-09-01 00:00 | BSA | 1.7 | 1 | + + + + + | 2022-09-01 00:00 | heart_rate | 1|1| | completed | + + + + + | 2022-09-01 00:00 | heart_rate | 83 | /min | + + + + + | 2022-09-01 00:00 | height_metric | 165.1 | cm | + + + + + | 2022-09-01 00:00 | height_standard | 65 | in | + + + + + | 2022-09-01 00:00 | o2_saturation | 98 | % | + + + + + | 2022-09-01 00:00 | temperature_metric | 36.89 | C | | | | | | + + + + + | 2022-09-01 00:00 | | 98.4 | F | | | temperature_standar | | | | | d | | | + + + + + | 2022-09-01 00:00 | weight_metric | 61.23 | kg | + + + + + | 2022-09-01 00:00 | weight_standard | 135 | lb | + + + + + | 2022-09-08 00:00 | BMI | 23.3 | 1 | + + + + + | 2022-09-08 00:00 | BP_diastolic | 78 | mmHg | + + + + + | 2022-09-08 00:00 | BP_systolic | 124 | mmHg | + + + + + | 2022-09-08 00:00 | BSA | 1.7 | 1 | + + + + + | 2022-09-08 00:00 | heart_rate | 84 | /min | + + + + + | 2022-09-08 00:00 | height_metric | 165.1 | cm | + + + + + | 2022-09-08 00:00 | height_standard | 65 | in | + + + + + | 2022-09-08 00:00 | o2_saturation | 97 | % | + + + + + | 2022-09-08 00:00 | temperature_metric | 36.22 | C | | | | | | + + + + + | 2022-09-08 00:00 | | 97.2 | F | | | temperature_standar | | | | | d | | | + + + + + | 2022-09-08 00:00 | weight_metric | 63.5 | kg | + + + + + | 2022-09-08 00:00 | weight_standard | 140 | lb | + + + + + | 2022-09-12 00:00 | BMI | 23.5 | 1 | + + + + + | 2022-09-12 00:00 | BP_diastolic | 62 | mmHg | + + + + + | 2022-09-12 00:00 | BP_systolic | 92 | mmHg | + + + + + | 2022-09-12 00:00 | BSA | 1.7 | 1 | + + + + + | 2022-09-12 00:00 | heart_rate | 1|1| | completed | + + + + + | 2022-09-12 00:00 | heart_rate | 88 | /min | + + + + + | 2022-09-12 00:00 | height_metric | 165.1 | cm | + + + + + | 2022-09-12 00:00 | height_standard | 65 | in | + + + + + | 2022-09-12 00:00 | o2_saturation | 95 | % | + + + + + | 2022-09-12 00:00 | temperature_metric | 36.28 | C | | | | | | + + + + + | 2022-09-12 00:00 | | 97.3 | F | | | temperature_standar | | | | | d | | | + + + + + | 2022-09-12 00:00 | weight_metric | 64.18 | kg | + + + + + | 2022-09-12 00:00 | weight_standard | 141.5 | lb | + + + + + | 2022-09-24 00:00 | BMI | 23 | 1 | + + + + + | 2022-09-24 00:00 | BP_diastolic | 78 | mmHg | + + + + + | 2022-09-24 00:00 | BP_systolic | 132 | mmHg | + + + + + | 2022-09-24 00:00 | BSA | 1.7 | 1 | + + + + + | 2022-09-24 00:00 | heart_rate | 1|1| | completed | + + + + + | 2022-09-24 00:00 | heart_rate | 80 | /min | + + + + + | 2022-09-24 00:00 | height_metric | 165.1 | cm | + + + + + | 2022-09-24 00:00 | height_standard | 65 | in | + + + + + | 2022-09-24 00:00 | o2_saturation | 96 | % | + + + + + | 2022-09-24 00:00 | temperature_metric | 36.5 | C | | | | | | + + + + + | 2022-09-24 00:00 | | 97.7 | F | | | temperature_standar | | | | | d | | | + + + + + | 2022-09-24 00:00 | weight_metric | 62.82 | kg | + + + + + | 2022-09-24 00:00 | weight_standard | 138.5 | lb | + + + + + | 2023-02-16 00:00 | BMI | 24.2 | 1 | + + + + + | 2023-02-16 00:00 | BP_diastolic | 84 | mmHg | + + + + + | 2023-02-16 00:00 | BP_systolic | 136 | mmHg | + + + + + | 2023-02-16 00:00 | BSA | 1.7 | 1 | + + + + + | 2023-02-16 00:00 | heart_rate | 1|1| | completed | + + + + + | 2023-02-16 00:00 | heart_rate | 90 | /min | + + + + + | 2023-02-16 00:00 | height_metric | 165.1 | cm | + + + + + | 2023-02-16 00:00 | height_standard | 65 | in | + + + + + | 2023-02-16 00:00 | o2_saturation | 97 | % | + + + + + | 2023-02-16 00:00 | temperature_metric | 36.22 | C | | | | | | + + + + + | 2023-02-16 00:00 | | 97.2 | F | | | temperature_standar | | | | | d | | | + + + + + | 2023-02-16 00:00 | weight_metric | 65.95 | kg | + + + + + | 2023-02-16 00:00 | weight_standard | 145.4 | lb | + + + + +"
--- OUTSIDE RECORDS SUMMARY | ~2023-02-27 | XMS | Continuity of Care Document ---
Demographics + + + | Address | [address] | | | [place] [address] | + + + | Preferred Language | Unknown | + + + | Marital Status | Never | + + + | Anabaptist Affiliation | Unknown | + + + | Race | White | + + + | Ethnic Group | Not or | + + + Author + + + | Author | [facility] | + + + | Organization | [facility] | + + + | Address | [address] | | | [place] [address] | + + + | Phone | | + + + Care Team Providers + + + + | Care Wheel Molder Name | Role | Phone | + [...] | (no severity) | | | | [facility] | | | + + + + + + Encounters No information. Functional Status No information. Immunizations No information. Medications + + + + | date | description | facility | + + + + | 2022-06-06 00:00 | [facility] | | | [facility] | | + + + + | 2022-06-27 00:00 | MEDROXYPROGESTERONE | [facility] | | | ACETATE | | + + + + | 2022-08-26 00:00 | medroxyprogesterone | [facility] | | | acetate 2.5 MG Oral Tablet | | + + + + | 2022-06-27 00:00 | Buprenorphine HCl/Naloxone | [facility] | | | HCl | | + + + + | 2017-12-31 00:00 | METHOCARBAMOL | [facility] | + + + + | 2022-06-05 00:00 | Lidocaine | [facility] | + + + + | 2022-01-04 00:00 | LURASIDONE HCL | [facility] | + + + + [...] 00:00 | Ibuprofen 800 MG Oral | [facility] | | | Tablet | | + + + + | 2022-11-02 00:00 | Ibuprofen 800 MG Oral | [facility] | | | Tablet | | + + + + | 2022-12-30 00:00 | Ibuprofen 800 MG Oral | [facility] | | | Tablet | | + + + + | 2022-06-05 00:00 | NAPROXEN | [facility] | + + + + | 2022-08-26 00:00 | medroxyPROGESTERone | [facility] | | | Acetate 2.5 MG Oral Tablet | | + + + + | 2020-10-02 00:00 | DOXYCYCLINE HYCLATE | [facility] | + + + + | 2023-02-16 00:00 | GNP Pseudoephedrine HCl 12 | [facility] | | | Hr 120 MG Oral Tablet | | | | Extended Release 12 Hour | | + + + + | 2022-09-01 00:00 | estradiol 2 MG Oral Tablet | [facility] | | | | | + + + + | 2022-09-24 00:00 | ibuprofen 800 MG Oral | [facility] | | | Tablet [...] | 2022-06-20 00:00 | NICOTINE | [facility] | + + + + | 2022-06-02 00:00 | ESTRADIOL | [facility] | + + + + | 2022-06-06 00:00 | ESTRADIOL | [facility] | + + + + | 2022-06-27 00:00 | ESTRADIOL | [facility] | + + + + | 2022-09-01 00:00 | Estradiol 2 MG Oral Tablet | [facility] | | | | | + + + + | 2017-12-31 00:00 | predniSONE | [facility] | + + + + | 2020-10-02 00:00 | predniSONE | [facility] | + + + + | 2022-06-02 00:00 | BUPRENORPHINE HCL | [facility] | + + + + | 2022-06-06 00:00 | BUPRENORPHINE HCL | [facility] | + + + + | 2020-10-02 00:00 | NICOTINE | [facility] | + + + + | 2022-09-24 00:00 | Verapamil HCl ER 120 MG | [facility] | | | Oral Tablet Extended | | | | Release | | + + + + | 2022-09-02 00:00 | Cyclobenzaprine HCl 10 MG | [facility] | | | Oral Tablet | | + + + + | 2023-02-16 00:00 | amoxicillin 875 MG / | [facility] | | | clavulanate 125 MG Oral | | | | Tablet | | + + + + | 2022-01-04 00:00 | DULOXETINE HCL | [facility] | + + + + | 2022-06-02 00:00 | DULOXETINE HCL | [facility] | + + + + | 2022-06-06 00:00 | DULOXETINE HCL | [facility] | + + + + | 2022-06-27 00:00 | DULOXETINE HCL | [facility] | + + + + | 2022-09-01 00:00 | duloxetine 60 MG Delayed | [facility] | | | Release Oral Capsule | | + + + + | 2022-01-04 00:00 | PREGABALIN | [facility] | + + + + | 2022-09-02 00:00 | Ondansetron 4 MG Oral | [facility] | | | Tablet Disintegrating | | + + + + | 2022-09-12 00:00 | Ondansetron 4 MG Oral | [facility] | | | Tablet Disintegrating | | + + + + | 2022-09-24 00:00 | Ondansetron 4 MG Oral | [facility] | | | Tablet Disintegrating | | + + + + | 2023-02-16 00:00 | Amoxicillin-Pot | [facility] | | | Clavulanate 875-125 MG Oral | | | | Tablet | | + + + + | 2022-09-02 00:00 | cyclobenzaprine | [facility] | | | hydrochloride 10 MG Oral | | | | Tablet | | + + + + | 2022-01-04 00:00 | TRAMADOL HCL | [facility] | + + + + | 2022-06-06 00:00 | TOLTERODINE TARTRATE | [facility] | + + + + | 2022-06-27 00:00 | TOLTERODINE TARTRATE | [facility] | + + + + | 2022-06-02 00:00 | TRAZODONE HCL | [facility] | + + + + | 2022-06-06 00:00 | TRAZODONE HCL | [facility] | + + + + | 2022-06-27 00:00 | TRAZODONE HCL | [facility] | + + + + | 2022-01-04 00:00 | HYDROCODONE | [facility] | | | BIT/ACETAMINOPHEN | | + + + + | 2020-10-02 00:00 | ALBUTEROL SULFATE | [facility] | + + + + | 2022-09-01 00:00 | DULoxetine HCl 60 MG Oral | [facility] | | | Capsule Delayed Release | | | | Particles | | + + + + | 2022-09-24 00:00 | verapamil hydrochloride | [facility] | | | 120 MG Extended Release | | | | Oral Tablet | | + + + + | 2021-12-15 00:00 | PEG 3350/NA | [facility] | | | SULF,BICARB,CL/KCL | | + + + + | 2021-12-15 00:00 | PROMETHAZINE HCL | [facility] | + + + + | 2022-09-01 00:00 | Trazadone HCL 150mg | [facility] | | | [...] | 2021-12-15 00:00 | Constipation | [facility] | + + + + | 2021-12-15 00:00 | Abdominal pain | [facility] | + + + + | 2021-12-15 00:00 | Headache | [facility] | + + + + [...] + + + | 2021-12-15 16:56 | skilled nursing (current) use of | [facility] | | | systemic steroids | [facility] | + + + + | 2021-12-15 16:56 | Other correction (current) | [facility] | | | drug therapy | [employer] | + + + + | 2022-06-05 00:00 | Pleurisy | [facility] | + + + + | 2022-06-20 00:00 | Influenza due to influenza | [facility] | | | virus, type A, human | | + + + + | 2022-06-20 00:00 | Acute viral bronchitis | [facility] | + + + + | 2022-11-06 11:48 | CERVICALGIA | [facility] | + + + + Procedures + + + + | date | description | facility | + + + + | 2022-06-02 00:00 | EXCISION OF CECUM, ENDO, | [facility] | | | DIAGN | | + + + + | 2022-06-02 00:00 | EXCISION OF RECTUM, ENDO, | [facility] | | | DIAGN | | + + + + | 2022-06-02 00:00 | Colonoscopy with biopsy of [facility] | | | colon | | + + + + | 2022-06-02 00:00 | Colonoscopy with biopsy of [facility] | | | colon | | + + + + | 2022-06-02 00:00 | COLONOSCOPY AND BIOPSY | [facility] | + + + + [...] (missing) | | (unavailable | 19:43 | [facility] | | | | | ) | [...] | 2022-09-09 00:00 | [facility] (finding) | [facility] | | | | | + + + + | 2022-09-15 00:00 | Unknown if ever smoked | [facility] | | | | | [...] 00:00 | Unknown if ever smoked | [facility] | | | [...]
[~2023-02-27 18:18] MED LIST changes: +BUPRENO-NALOX1 EACH SL; +LIDODERM1 EACH TD; +MEDROXYPROGEST2.5 MG PO; +NAPROSYN500 MG PO; +NICOTINE1 EAC2 TD; +TOLTERODINE TART4 MG PO
--- OUTSIDE RECORDS SUMMARY | 2023-02-27 18:22 | XMS ---
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 - Patient with suicidal and/or homicidal ideations eloped. - Patient eloped with IV in place. Details: PATIENT LEFT AMA CRITERIA MET - [facility] CARE PROVIDERS CLAUDE LOPEZ Physician Tobacco Sprayer 10/03/2020-Current PHONE: Unknown Cipriano has no Care Guidelines for this patient. Myra VISIT COUNT (12 MO.) [address] [place] [address] TOTAL 4 NOTE: Visits indicate total known visits. 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
[2023-02-27] MEDS ORDERED: ZOLPIDEM TART12.5 MG PO (18:35)
[2023-02-27] MEDS ORDERED: LORAZEPAM0.5 MG PO (18:36)
[2023-02-27] MEDS ORDERED: AZITHROMYCIN250 MG PO (18:36)
[2023-02-27] MEDS ORDERED: CAPLYTA42 MG PO (18:36)
[2023-02-27 19:26] LABS: BASOPHILS 0.4 % (0-2); EOSINOPHILS 4.1 % (0-6); HEMATOCRIT 45.6 % (35.0-50.0); HEMOGLOBIN 15.4 g/dL (12.0-18.0); LYMPHOCYTES 39.6 % (24-44); MCHC 33.9 g/dl (30-36); MCV 88.5 fl (81-99); MONOCYTES 4.7 % (0-12); NEUTROPHILS 51.2 % (39-80); PLATELET COUNT 466 K/uL (140-440); RBC 5.15 M/ul (4.3-5.7); RDW 13.4 (10.5-15.0)
[2023-02-27 19:50] LABS: ALBUMIN 4.4 g/dL (3.4-5.0); ALBUMIN/GLOBULIN RATIO 1.05 (1.1-2.4); ANION GAP 15.9 (7-21); BILIRUBIN, TOTAL 0.3 ng/dL (0.2-1.0); BUN/CREATININE RATIO 12.5 (6.0-28.6); CREATININE, SERUM 0.96 mg/dL (0.55-1.02); MAGNESIUM 1.8 mg/dL (1.8-2.4); POTASSIUM 3.9 mmol/L (3.5-5.1); PROTEIN, TOTAL 8.6 g/dL (6.4-8.2); TSH, 3RD GENERATION 9.615 uIU/mL (0.358-3.740)
[2023-02-27 20:23] LABS: BILIRUBIN, URINE NEGATIVE (negative); BLOOD/HGB, URINE NEGATIVE (Negative); KETONE, URINE NEGATIVE (Negative); LEUK ESTERASE, URINE SMALL (negative); NITRITE, URINE NEGATIVE (negative); PH, URINE 7.5 (5-7)
[2023-02-27 20:24] LABS: AMPHETAMINES, UR NEGATIVE (NEGATIVE); BARBITURATES, UR NEGATIVE (NEGATIVE); BENZODIAZEPINES, UR POSITIVE (NEGATIVE); BUPRENORPHINE,UR POSITIVE (NEGATIVE); COCAINE, UR NEGATIVE (NEGATIVE); MARIJUANA (THC), UR NEGATIVE (NEGATIVE); MDMA, UR NEGATIVE (NEGATIVE); METHADONE, UR NEGATIVE (NEGATIVE); METHAMPHETAMINE, UR NEGATIVE (NEGATIVE); OPIATES, UR NEGATIVE (NEGATIVE); OXYCODONE, UR NEGATIVE (NEGATIVE); PHENCYCLIDINE, UR NEGATIVE (NEGATIVE); TRICYCLIC ANTIDEPRESSANT, UR NEGATIVE (NEGATIVE)
--- NOTE | 2023-02-27 20:24 | EKG ---
[facility] [address] [facility] [place] [address] Signed Sinus tachycardia Otherwise normal ECG When compared with ECG of 20-JUN-2022 08:06, No significant change was found Confirmed by Jori Villasenor MD () on 02/27/2023 8:23:43 PM Electronically Signed By: JORI VILLASENOR MD 02/27/232023 PATIENT NAME: SERAFIN LEPE Electrocardiogram DATE OF : 68 PHYSICIAN: JORI VILLASENOR MD REPORT #: [id number] REPORT IS CONFIDENTIAL AND NOT TO BE RELEASED WITHOUT AUTHORIZATION
[2023-02-27 20:34] LABS: CASTS, URINE NONE SEEN \\lpf; COLLECTION TYPE, URINE CLEAN CATCH; CRYSTALS, URINE NONE SEEN (0-1+); EPITHELIAL CELLS, URINE SQUAMOUS 4+ /lpf (0-1+); RED BLOOD CELLS, URINE 0-1 /hpf (0-5); REFLEX CULTURE, URINE No (No)
[2023-02-27 20:35] LABS: BACTERIA, URINE RARE /hpf (negative)
[2023-02-27 20:49] VITALS: BP 162/98
== END 2023-02-27 20:50 | disposition home or self-care (01) ==
LOC: ED 18:18
PROVIDERS: Internal Medicine
DX: F41.9 Anxiety disorder, unspecified (principal); J32.9 Chronic sinusitis, unspecified; R79.89 Other specified abnormal findings of blood chemistry; R82.5 Elevated urine levels of drugs, medicaments and biological substances; R00.0 Tachycardia, unspecified; F32.A Depression, unspecified; F17.200 Nicotine dependence, unspecified, uncomplicated; Z88.1 Allergy status to other antibiotic agents; Z79.899 Other long term (current) drug therapy
CPT/HCPCS: 36415; 71046; 80053; 81001; 83735; 84443; 84484; 84703; 85025; 85379; 93005; 93010; 96374; 96375; 99284-25; J2060; J7121